=== PATIENT | female | born 1995 | race African-American/Black ===

== ENCOUNTER 2024-04-01 10:23 | Emergency (ER) | payer OTHER, SELFPAY ==
[2024-04-01 10:28] VITALS: BP 117/77; PULSE 82; RESP 18; TEMP 36.9; O2SAT 99; BMI 30.1
[2024-04-01 13:08] VITALS: BP 155/41; PULSE 72; RESP 14; TEMP 36.1; O2SAT 100
[2024-04-01] MEDS: Tetracaine HCl/PF 0.5% Oph Sol 4 ML DROPS 1 DROP EYE-LEFT (14:15)
[2024-04-01] MEDS: Fluorescein Sodium STRIP 1 STRIP EYE-LEFT (14:15)
[2024-04-01 14:44] VITALS: BP 112/59; PULSE 68; RESP 14; TEMP 36.2; O2SAT 100
--- NOTE | 2024-04-01 15:44 | ED_ITS ---
HPI - Eye Problem General Chief complaint: Eye Problems Stated complaint: eye problem Time Seen by Provider: 04/01/24 12:22 History of Present Illness HPI Narrative: Patient complains of a mild foreign body sensation or irritation in the lower left eye for 2 or 3 days, no vision loss no photophobia no discharge from the eye, does not recall anything going into the eye, was not working with metal Related Data Previous Rx's ?Medication ?Instructions ?Recorded carboxymethylcellulose sodium 1 % 1 drp ophthalmic (eye) BID #15 mL 04/01/24 eye drops (Artificial Tears (carboxymethylcellulose)) Allergies Allergy/AdvReac Type Severity Reaction Status Date / Time No Known Allergies Allergy Verified 04/01/24 10:29 [facility] Past Medical History Source: nursing notes reviewed Social History Social History Advance Directives: No Advance Directives Information Provided: Yes Do you have a plan to hurt others: No Plan Physical Exam Vital Signs: Vital Signs: Last Vital Signs Temp 97.1 F 04/01/24 16:05 Pulse 68 04/01/24 16:05 Resp 14 04/01/24 16:05 BP 112/59 L 04/01/24 16:05 Pulse Ox 100 04/01/24 16:05 O2 Del Method Room Air 04/01/24 16:05 BMI result Body Mass Index 30.1 General appearance no distress comfortable appearing The left eye exam there is no discharge pupils equal round reactive to light extraocular motions are intact The lids are flipped back both upper and lower there is no evidence of foreign body The eye was stained with no dye uptake and again no evidence of foreign body Visual acuity was 2020 bilateral Course Course Course Narrative: Eye exam was normal and I did not visualize any foreign body, I did after fluorescein administration irrigate it copiously in case there was any foreign body I did not see and patient did not have a foreign body sensation on discharge and is advised to follow with eye doctor if symptoms persist or return Medications Administered Discontinued Medications Generic Name Dose Route Start Last Admin Trade Name Freq PRN Reason Stop Dose Admin Fluorescein Sodium 1 strip 04/01/24 13:59 04/01/24 14:15 Fluorescein Sodium Strip EYE-LEFT 04/01/24 14:00 1 strip ONCE ONE Administration Tetracaine HCl 1 drop 04/01/24 13:59 04/01/24 14:15 Tetracaine Hcl/Pf 0.5% Oph Antionette 4 Ml Drops EYE-LEFT 10/18/24 14:00 1 drop ONCE ONE Administration Discharge Plan Discharge Clinical Impression: Irritation of left eye Patient Disposition: Home, Self-Care Additional Instructions: The exam did not show any foreign body or scratch and the exam was very normal I irrigated with a lot of water in case there was a small speck I did not see but no sign of any serious problem with the eye If symptoms continue you can try to make an appointment with the eye doctor I gave the number There is a product [id number] called artificial tears which helps to lubricate the eye Return any time any worse condition or concerns Prescriptions: New Artificial Tears (cmc) 1 % drops 1 drp ophthalmic (eye) BID Qty: 15 0RF Referrals: Dani Browne [Physician] - (Left eye foreign body sensation) Interventions: ED Discharge Assessment Last Done: 04/01/24 16:05 Discharge Date/Time: 04/01/24 16:07 Print Language: Rina Bustamante
[2024-04-01 16:05] VITALS: BP 112/59; PULSE 68; RESP 14; TEMP 36.2; O2SAT 100
== END 2024-04-01 16:07 | disposition home or self-care (01) ==
PROVIDERS: Emergency Provider Internal Medicine
DX: H57.8A2 Foreign body sensation, left eye (principal)
CPT/HCPCS: 99283

== ENCOUNTER 2025-03-23 12:09 | Outpatient (REF) | payer OTHER, SELFPAY ==
[2025-03-23 14:06] LABS: Hematocrit 29.7 % (37.0-47.0); Hemoglobin 9.1 g/dl (12.0-16.0); Imm Gran Abs Auto 0.03 X10*3/uL (0.00-0.03); Imm Gran Pct Auto 0.8 % (0.0-0.4); Lymphocytes Absolute Auto 1.4 X10*3/uL (1.2-4.9); Mean Corpuscular HGB Conc 30.6 g/dl (31.0-35.0); Mean Corpuscular Hemoglobin 18.8 pg (27.0-33.0); Mean Corpuscular Volume 61.5 fL (80.0-98.0); NRBC Abs Auto 0.000 X10*3/uL (0.0-0.012); NRBC Pct Auto 0.0 /100WBC (0.0-0.2); Platelet Count 318 X10*3/uL (160-400); Red Blood Count 4.83 X10*6/uL (4.20-5.50); White Blood Count 4.0 X10*3/uL (4.8-10.8)
[2025-03-23 14:08] LABS: MANUAL DIFF FLAG SCAN
[2025-03-23 15:46] LABS: CT PCR Urine NOT DETECTED (Not Detect.); NG PCR Urine NOT DETECTED (Not Detect.)
[2025-03-23 17:13] LABS: Alanine Aminotransferase 23 U/L (0-31); Albumin Level 4.5 g/dL (3.5-5.0); Alkaline Phosphatase 57 U/L (39-117); Anion Gap 10 (12-20); Aspartate Amino Transferase 25 U/L (5-31); Blood Urea Nitrogen 7 mg/dL (9-16); Calcium 9.4 mg/dL (8.4-10.2); Carbon Dioxide 24 mmol/L (22-29); Chloride 109 mmol/L (96-108); Cholesterol 149 mg/dL (<200); Estimated Glomerular Filt Rate > 60; HDL Cholesterol 39 mg/dL (>40); Potassium 4.2 mmol/L (3.3-5.1); Sodium 139 mmol/L (135-145); Total Protein 7.6 g/dL (6.5-8.0); Triglycerides 86 mg/dL (<150)
[2025-03-23 17:30] LABS: Thyroid Stimulating Hormone 0.97 uIU/mL (0.32-4.0)
[2025-03-24 08:49] LABS: HBS Num1 1.60 mIU/mL (0-7.99); HBc Num1 0.15 S/CO (0.00-0.79); HBsAGNum1 0.49 S/CO (0.00-0.99); HIV Num 1 0.11 S/CO (0.00-0.99); Hepatitis B Surface Antigen Negative (Negative); ~HepC Num1 0.13 S/CO (0.00-0.79); ~Hepatitis B Surface Antibody NONREACTIVE (Nonreactive); ~Hepatitis C Antibody Nonreactive (Nonreactive)
== END 2025-03-23 12:10 | disposition home or self-care (01) ==
LOC: HO.HHCL 12:09
PROVIDERS: PCP Nurse Practitioner Family; Visit Provider Nurse Practitioner Family
DX: Z00.00 Encounter for general adult medical examination without abnormal findings (principal); Z11.4 Encounter for screening for human immunodeficiency virus [HIV]; Z13.1 Encounter for screening for diabetes mellitus; Z13.6 Encounter for screening for cardiovascular disorders; Z13.29 Encounter for screening for other suspected endocrine disorder; Z20.2 Contact with and (suspected) exposure to infections with a predominantly sexual mode of transmission
CPT/HCPCS: 80053; 80061; 83036; 84443; 85025; 86704; 86706; 86803; 87340; 87389; 87491; 87591

== ENCOUNTER 2025-04-19 15:48 | Outpatient (REF) | payer OTHER, SELFPAY ==
--- OUTSIDE RECORDS SUMMARY | 2025-04-19 14:30 | XMS_ITS | Encounter Summary ---
Author Organization [employer] Address [address] [place] [address] 7 [place] [address] Care Team Providers Care Integration Aide Name Role Phone Chayo Lance Primary Care Provider [phone] Reason for Referral * Imaging (Routine) - Authorized Specialty Diagnoses / Procedures Referred By Juarez t Referred To Contact Radiology Diagnoses Abnormal uterine bleeding Procedures Us Pelvis complete Chayo Lance, PROJECT ENGINEERING MANAGER [address] [place] [address] Phone: tel: fax: [address] Phone: tel: fax: Referral ID Status Reason Start Date Expiration Date V isits Requested Visits Authorized [id number] Authorized 04/19/2025 04/19/2026 1 1 * Imaging (Routine) - Authorized Specialty Diagnoses / Procedures Referred By Contac t Referred To Contact Radiology Diagnoses Abnormal uterine bleeding Procedures US Pelvis Transvaginal Chayo Lance, PROJECT ENGINEERING MANAGER [address] [place] [address] Phone: tel: fax: [address] Phone: tel: fax: Referral ID Status Reason Start Date Expiration Date V isits Requested Visits Authorized [id number] Authorized 04/19/2025 04/19/2026 1 1 Encounter Details Date Type Department Care Team (Late st Contact Info) Description 04/19/2025 2:30 PM EST Office Visit [facility] [address] [place] [address] Chayo Lance FNP [address] [place], [place] [phone] Microcytic anemia (Primary Dx); Nonintractable episodic headache, unspecified headache type; Abnormal uterine bleeding; Menstrual migraine without status migrainosus, not intractable Social History Tobacco Use Types Packs/Day Years Used Date Smoking Tobacco: Never Passive Smoke Exposure: Never Smokeless Tobacco: Never Alcohol Use Standard Drinks/Week Comments Never 0 (1 standard drink = 0.6 oz pur e alcohol) Depression Answer Date Recorded Patient Health Questionnaire-9 Score 1 03/23/2025 Patient Health Questionnaire-9 Score 1 03/23/2025 Last PHQ-9: Questionnaire Data Not on file 1 Housing Stability Answer Date Recorded What is your housing situation today? I do not have housing (Staying with others, in a hotel, in a skilled nursing, living outside on the street, on a beach, in a car, or in a park 03/23/[address] you li ve. Do you have problems with any of the following? Pests such as bugs, ants, or mice 03/23/2025 Food Insecurity Answer Date Recorded Within the past 12 months, y ou worried that your food would run out before you got money to buy more: Sometimes True 2024 Within the past 12 months,th e food you bought just didn't last and you didn't have enough money to get more: Never True 03/23/2025 Transportation Answer Date Recorded In the past 12 months, has l ack of transportation kept you from medical appts, meetings, work or from getting things needed for daily living? Yes, it has kept me from medical appointments or getting medications.;Yes, it has kept me from non-medical meetings, work, or getting things that I need 03/23/2025 Utilities Answer Date Recorded In the past 12 months, has t he electric, gas, oil or water company threatened to shut off services in your home? No 03/23/2025 Depression Answer Date Recorded Patient Health Questionnaire-2 Score 1 03/23/2025 Internet Access Answer Date Recorded Internet Access Q1 Yes 03/23/2025 Internet Access Q2 Not on file 03/23/2025 Comments Unknown Sex and Gender Information Value Date Recorded Sex Assigned at Female 01/10/2025 2:08 PM EDT Legal Sex Female 1:41 PM EDT Gender Identity Female 01/10/2025 2:08 PM EDT Sexual Orientation Straight 01/17/2025 12 :15 PM EDT documented as of this encounter Last Filed Vital Signs Vital Sign Reading Time Taken Comments Blood Pressure 110/58 04/19/2025 2:24 PM EST Pulse 70 04/19/2025 2:24 PM EST Temperature 36.9 C (98.4 F) 04/19/2025 2:24 PM EST Respiratory Rate 20 04/19/2025 2:24 PM EST Oxygen Saturation - - Inhaled Oxygen Concentration - - Weight 89.4 kg (197 lb 3.2 oz) 04/19/2025 2:24 P M EST Height 169.5 cm (5' 6.75 ) 04/19/2025 2:24 PM ES T Body Mass Index 31.12 04/19/2025 2:24 PM EST documented in this encounter Progress Notes * YVETTE Rivera - 04/19/2025 2:30 PM EST Subjective Doris Garzon is a 29 y.o. female who presents to the office for follow up visit - chronic conditions. Interim history: Nonintractable episodic headache- Headache may be associated with anemia. Migrainous features described. Advised to keep a headache diary. Patient did not come in with diary. 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 Ferrous sulfate (Fe Tabs) 325 (65 Fe) MG EC tablet prescribed. Currently taking iron tablets for low hemoglobin as prescribed Current concern Abnormal Menstrual Bleeding - Reports of having two menstrual periods in March 2025 (first around March 22, 2025, lasting 3 days; second on April 12, 2025) - History of experiencing two or three periods per month - Menstrual cycles described as normal (30 days) when feeling well, - Denies heavy bleeding; describes flow as normal during episodes of increased frequency Current Medications[1] Problem List[2] Review of Systems Constitutional: Negative for chills, fatigue and fever. HENT: Negative for sore throat. Respiratory: Negative for cough, chest tightness and wheezing. Cardiovascular: Negative for chest pain and palpitations. Gastrointestinal: Negative for constipation, nausea and vomiting. Neurological: Negative for headaches. Objective Visit Vitals BP 110/58 (BP Location: Left arm, Patient Position: Sitting, BP Cuff Size: Adult) Pulse 70 Temp 98.4 ??F (36.9 ??C) (Oral) Resp 20 Ht 5' 6.75 (1.695 m) Wt 197 lb 3.2 oz (89.4 kg) LMP 03/27/2025 (Exact Date) BMI 31.12 kg/m?? Smoking Status Never BSA 2.05 m?? Physical Exam Vitals reviewed. Constitutional: Appearance: Normal appearance. HENT: Head: Atraumatic. Cardiovascular: Rate and Rhythm: Normal rate and regular rhythm. Pulses: Normal pulses. Heart sounds: Normal heart sounds. No murmur heard. Pulmonary: Effort: Pulmonary effort is normal. Breath sounds: Normal breath sounds. No wheezing. Neurological: Mental Status: She is alert and oriented to person, place, and time. Psychiatric: Mood and Affect: Mood normal. Behavior: Behavior normal. Assessment/Plan Problem List Items Addressed This Visit Nonintractable episodic headache Menstrual migraine without status migrainosus - Headaches consistent with migraine, with identifiable triggers including menstruation, strong odors, inadequate sleep, and insufficient food intake. Migraines may be hormonally influenced. - Maintain headache diary to identify triggers. Initiate naproxen at onset of menstruation (morningand night), with Tylenol in the afternoon, and continue through menstrual period to prevent headaches. Use Tylenol alone if effective, and switch to naproxen if pain intensifies. Take medication at earliest sign of headache. Avoid triggers when possible. Follow-up in 3 months with headache diary. Relevant Medications naproxen (Naprosyn) 500 MG tablet acetaminophen (Tylenol Extra Strength) 500 MG tablet Microcytic anemia - Primary - Microcytic anemia present, likely contributing to symptoms. Ongoing need to monitor response to iron supplementation. - Continue iron tablet therapy. Ordered blood test to assess efficacy of iron supplementation and to confirm absence of folic acid deficiency. Refilled iron tablet prescription. Follow-up in 3 monthsto reassess anemia and symptoms. Other Relevant Orders CBC auto differential Relevant Medications ferrous sulfate (Fe Tabs) 325 (65 Fe) MG EC tablet Abnormal uterine bleeding - Abnormal uterine bleeding with increased frequency of menses, possibly related to hormonal factors or uterine structural abnormalities. MacuCLEARplanfreshbag contraceptive device in place, expiring July 2025. - Ordered pelvic ultrasound (transabdominal and transvaginal) to evaluate etiology of abnormal bleeding. Will proceed with testing if insurance approves. Monitor bleeding pattern and reassess at follow-up. Discussed contraceptive management and timing of device replacement Other Relevant Orders US Pelvis Transvaginal Us Pelvis complete This note was drafted using Ambient (AI) technology. The patient/patient's guardian has been informed and has consented to the use of this technology: Yes [1] Current Outpatient Medications Medication Sig Dispense Refill acetaminophen (Tylenol Extra Strength) 500 MG tablet Take 2 tablets every 6-8 hrs for headache as needed 30 tablet 0 benzoyl peroxide (PanOxyl Foaming Wash) 10 % external wash Apply small amount to wash face twice daily. Pat dry and apply non fragrance oil free moisturizer 142 g 0 clindamycin (Cleocin T) 1 % lotion Apply topically 2 times daily. 60 mL 5 ferrous sulfate (Fe Tabs) 325 (65 Fe) MG EC tablet Take 1 tablet (325 mg) by mouth with breakfast for 90 doses. Do not crush, chew, or split. 90 tablet 0 naproxen (Naprosyn) 500 MG tablet Take 2 times daily with food as needed for headache / pain 30 tablet 0 No current facility-administered medications for this visit. [2] Patient Active Problem List Diagnosis Nonintractable episodic headache Microcytic anemia Obesity (BMI 30-39.9) [facility] Food insecurity Sheltered homelessness Transportation insecurity documented in this encounter Plan of Treatment Scheduled Orders Name Type Priority Associated Diagnoses Orde r Schedule US Pelvis Transvaginal Imaging Routine Abnormal uterine bleeding Expected: 04/19/2025, Expires: 04/19/2026 Us Pelvis complete Imaging Routine Abnormal uterine bleeding Expected: 04/19/2025, Expires: 04/19/2026 documented as of this encounter Procedures Procedure Name Priority Date/Time Associated Diagnosis Comments CBC WITH AUTO DIFFERENTIAL Routine 04/19/2025 3:53 PM EST Microcytic anemia documented in this encounter Results * (ABNORMAL) CBC auto differential (04/19/2025 3:53 PM EST) White Blood Count 4.8 4.8 - 10.8 X10*3/uL [facility] Red Blood Count 4.58 4.20 - 5.50 X10*6/uL [facility] Hemoglobin 8.4(L) 12.0 - 16.0 g/dl [facility] Hematocrit 27.7(L) 37.0 - 47.0 % [facility] Mean Corpuscular Volume 60.5(L) 80.0 - 98.0 fL [facility] Mean Corpuscular Hemoglobin 18.3(L) 27.0 - 33.0 pg [facility] Mean Corpuscular HGB Conc 30.3(L) 31.0 - 35.0 g/dl [facility] Red Cell Distribution Width 22.2(H) 11.0 - 16.0 % [facility] Platelet Count 306 160 - 400 X10*3/uL [facility] Neutrophils Percent Auto 48.4 45 - 73 % [facility] Imm Gran Pct Auto 0.2 0.0 - 0.4 % [facility] Lymphocytes Percent Auto 37.7 20 - 40 % [facility] Monocytes Percent Auto 10.0 2 - 11 % [facility] Eosinophils Percent Auto 3.3 0 - 4 % [facility] Basophils Percent Auto 0.4 0 - 2 % [facility] NRBC Pct Auto 0.0 0.0 - 0.2 /100WBC [facility] Neutrophils Absolute Auto 2.3 2.0 - 8.3 x10*3/uL [facility] Imm Gran Abs Auto 0.01 0.00 - 0.03 X10*3/uL [facility] Lymphocytes Absolute Auto 1.8 1.2 - 4.9 X10*3/uL [facility] Monocytes Absolute Auto 0.5 0.1 - 1.2 X10*3/uL [facility] Eosinophils Absolute Auto 0.2 0.0 - 0.4 X10*3/uL [facility] Basophils Absolute Auto 0.0 0.0 - 0.2 X10*3/uL [facility] NRBC Abs Auto 0.000 0.0 - 0.012 X10*3/uL [facility] Blood Venous blood specimen / Unknown 04/19/2025 3:53 PM EST 04/19/2025 5:12 PM EST Chayo [facility]RA[facility] BLOOD ORDERABLES Edited Re sult - Final [facility] [address] [place] [phone] documented in this encounter Visit Diagnoses Diagnosis Microcytic anemia- Primary Unspecified iron deficiency anemia Nonintractable episodic headache, unspecified headache type Abnormal uterine bleeding Unspecified disorder of menstruation and other abnormal bleeding from female genital tract Menstrual migraine without status migrainosus, not intractable documented in this encounter Additional Health Concerns Assessment Noted Time PHQ-9 Depression Total Score: 1 03/23/20 25 11:31 AM EDT documented as of this encounter Care Teams Integration Aide Relationship Specialty Start Date End Date Chayo Lance FNP [address] [place] [address] PCP - General Family Medicine 03/23/25 documented as of this encounter
[2025-04-19 17:20] LABS: Imm Gran Abs Auto 0.01 X10*3/uL (0.00-0.03); Imm Gran Pct Auto 0.2 % (0.0-0.4); MANUAL DIFF FLAG SCAN; NRBC Abs Auto 0.000 X10*3/uL (0.0-0.012); NRBC Pct Auto 0.0 /100WBC (0.0-0.2); SCAN SMEAR FLAG 1
[2025-04-19 17:22] LABS: Hematocrit 27.7 % (37.0-47.0); Hemoglobin 8.4 g/dl (12.0-16.0); Lymphocytes Absolute Auto 1.8 X10*3/uL (1.2-4.9); Mean Corpuscular HGB Conc 30.3 g/dl (31.0-35.0); Mean Corpuscular Hemoglobin 18.3 pg (27.0-33.0); Platelet Count 306 X10*3/uL (160-400); Red Blood Count 4.58 X10*6/uL (4.20-5.50); White Blood Count 4.8 X10*3/uL (4.8-10.8)
[2025-04-19 17:46] LABS: Mean Corpuscular Volume 60.5 fL (80.0-98.0)
[2025-04-19 17:47] LABS: PLT ABN DIST 1
[2025-04-19 17:49] LABS: Ferritin 6 ng/mL (10-122)
[2025-04-19 18:05] LABS: Folate 10.3 ng/mL (> or = 4.0); Vitamin B12 388 pg/mL (200-900)
--- OUTSIDE RECORDS SUMMARY | 2025-04-19 18:35 | XMS_ITS | Encounter Summary ---
Author Organization [employer] Address [address] [facility] 7 [place] [address] Care Team Providers Care Partner Integration Planner Name Role Phone Chayo Lance Primary Care Provider Reason for Visit * Reason Onset Date Comments Letter for School/Work 04/19/2025 Encounter Details Date Type Department Care Team ([facility] st Contact Info) Description 04/19/2025 Telephone [facility] [address] [place] [address] Chayo Lance FNP [address] [place] [address] Letter for School/Work Social History Tobacco Use Types Packs/Day Years [...] with others, in a hotel, in a snf, living outside on the street, on a [...] got money to buy more: Sometimes True 10/09/ 2025 Within the past 12 months,th e food [...] PM EDT documented as of this encounter Plan of Treatment Not on file documented as of this encounter Visit Diagnoses Not on filedocumented in this encounter Additional Health Concerns Assessment Noted Time PHQ-9 Depression Total Score: 1 03/23/20 25 11:31 AM EDT documented as of this encounter Care Teams Partner Integration Planner Relationship Specialty Start Date End Date Chayo Lance FNP [address] [place] [id number] PCP - General Family Medicine 03/23/25 documented as of this encounter
--- OUTSIDE RECORDS SUMMARY | 2025-04-19 18:35 | XMS_ITS | Encounter Summary ---
Author Organization [employer] Address [address] [place] [address] Care Team Providers Care Industrial Psychology Teacher Name Role Phone Chayo Lance BLOCK BOLTER MULE OPERATOR Primary Care Provider [phone] Encounter Details Date Type Department Care Team (Latest Contact Info) Description 04/19/2025 Travel Social History Tobacco Use Types Packs/Day Years [...] with others, in a hotel, in a fpc, living outside on the street, on a [...] documented as of this encounter Care Teams Industrial Psychology Teacher Relationship Specialty Start Date End Date Chayo Lance FNP [address] [place] [id number] PCP - General Family Medicine 03/23/25 documented as of this encounter
--- OUTSIDE RECORDS SUMMARY | 2025-04-19 18:35 | XMS_ITS | Encounter Summary ---
Author Organization [employer] Address [address] [place] [address] Care Team Providers Care Vegetable Handler Name Role Phone Chayo Lance BUSINESS SERVICES CLERK Primary Care Provider [phone] Encounter Details Date Type Department Care Team ([facility] st Contact Info) Description 04/19/[address] [facility] [address] [place] [address] Chayo Lance FNP [address] [place] [address] Social History Tobacco Use Types Packs/Day Years [...] with others, in a hotel, in a [facility], living outside on the street, on a [...] documented as of this encounter Care Teams Vegetable Handler Relationship Specialty Start Date End Date Chayo Lance FNP [address] [place] [id number] PCP - General Family Medicine 03/23/25 documented as of this encounter
--- OUTSIDE RECORDS SUMMARY | 2025-04-19 18:35 | XMS_ITS | Encounter Summary ---
Author Organization [employer] Address [address] [place] [address] Care Team Providers Care Garage Door Installer Name Role Phone Chayo Lance CHILDHOOD DEVELOPMENT TEACHER Primary Care Provider [phone] Reason for Visit * Reason Onset Date Comments chart prep 04/18/2025 Encounter Details Date Type Department Care Team (Late st Contact Info) Description 04/18/2025 Telephone [facility] [address] [place], [place] [phone] Raymond Mahmood MA chart prep Social History Tobacco Use Types Packs/Day Years [...] with others, in a hotel, in a [place] [facility], living outside on the street, on a [...] PM EDT documented as of this encounter Miscellaneous Notes * Telephone Encounter - Raymond Mahmood MA - 04/18/2025 7:10 PM EST Chart Prep Labs: not done Images: not done Referrals: breast surgery-Referral cancelled due to patient having Health Safety [employer] [facility] I'm unable to proceed with referral and it's on hold until help desk manager or patient can change insurance. Message sent to referring provider. Vaccines due: Covid, Hep B, and HPV Screenings: pap smear Overdue care gaps: Not applicable documented in this encounter Plan of Treatment Not on file documented as of this encounter Visit Diagnoses Not on filedocumented in this encounter Additional Health Concerns Assessment Noted Time PHQ-9 Depression Total Score: 1 03/23/20 25 11:31 AM EDT documented as of this encounter Care Teams Garage Door Installer Relationship Specialty Start Date End Date Chayo Lance FNP [address] [place] [id number] PCP - General Family Medicine 03/23/25 documented as of this encounter
--- OUTSIDE RECORDS SUMMARY | 2025-04-19 18:35 | XMS_ITS | Clinical Summary ---
Author Organization [employer] Address [address] [facility] [address] [place] [address] Care Team Providers Care Chief Environmental Commitment Officer Name Role Phone Chayo Lance SCHEDULER Primary Care Provider [phone] Allergies No known active allergies Medications clindamycin (Cleocin T) 1 % lotionIndicati ons:Acne comedone Apply topically 2 times daily. 60 mL 5 03/23/20 25 026 Active benzoyl peroxide (PanOxyl Foaming Wash) 10 % external washIndication s:Acne comedone Apply small amount to wash face twice daily. Pat dry and apply non fragrance oil free moisturizer 142 g 03/26/20 25 Active naproxen (Naprosyn) 500 MG tabletIndicati ons:Nonintract able episodic headache, unspecified headache type Take 2 times daily with food as needed for headache / pain 30 tablet 04/19/20 25 Active acetaminophen (Tylenol Extra Strength) 500 MG tablet Take 2 tablets every 6-8 hrs for headache as needed 30 tablet 04/19/20 25 Active ferrous sulfate (Fe Tabs) 325 (65 Fe) MG EC tabletIndicati ons:Microcytic anemia Take 1 tablet (325 mg) by mouth with breakfast for 90 doses. Do not crush, chew, or split. 90 tablet 04/19/20 25 026 Active naproxen (Naprosyn) 500 MG tabletIndicati ons:Nonintract able episodic headache, unspecified headache type Take 2 times daily with food as needed for headache / pain 30 tablet 03/23/20 25 025 Discontinued(R eorder (will not trigger notification to Pharmacy)) ferrous sulfate (Fe Tabs) 325 (65 Fe) MG EC tabletIndicati ons:Microcytic anemia Take 1 tablet (325 mg) by mouth with breakfast for 90 doses. Do not crush, chew, or split. 90 tablet 03/25/20 025 Discontinued(R eorder (will not trigger notification to Pharmacy)) Active Problems Problem Noted Date Diagnosed Date Menstrual migraine without s tatus migrainosus, not intractable 04/19/2025 Nonintractable episodic headache 03/26/2025 Microcytic anemia 03/26/2025 Obesity (BMI 30-39.9) 03/26/2025 Acrochordon 03/26/2025 Food insecurity 03/26/2025 Sheltered homelessness 03/26/2025 Transportation insecurity 03/26/2025 Encounters Date Type Department Care Team Description 04/19/2025 2:30 PM EST Office Visit [address] [phone] Chayo Lance FNP Microcytic anemia (Primary Dx); Nonintractable episodic headache, unspecified headache type; Abnormal uterine bleeding; Menstrual migraine without status migrainosus, not intractable 04/19/[address] [address] Chayo Lance FNP Letter for School/Work 04/19/[address] [address] Chayo Lance FNP 04/19/2025 Travel 04/18/2025 Telephone [facility] [address] [place] [phone] Raymond Mahmood MA chart prep 03/27/2025 Patient Outreach [address] [address] Chayo Lance FNP Care Coordination ([facility] outreach for [facility] housing search-referral completed ) 03/27/[address] [phone] Chayo Lance FNP Results; Lab Orders 03/23/2025 9:30 AM EDT Office Visit [address] [address] Chayo Lance FNP Well adult exam (Primary Dx); Exercise counseling; Encounter for immunization; Microcytic anemia; Obesity (BMI 30-39.9); Dietary counseling; Nonintractable episodic headache, unspecified headache type; Acne comedone; Acrochordon; Sheltered homelessness; Food insecurity; Transportation insecurity 03/23/2025 Orders Only [facility] [address] [place] [phone] Chayo Lance FNP 03/23/[address] [address] Chayo Lance FNP 03/23/2025 Travel 03/16/2025 Patient Outreach [facility] [address] [place] [address] Chayo Lance FNP Pre-visit Planning ([facility] unable to reach [facility] ) 02/24/[address] [address] Demar Ramirez MD New Patient appt. 02/24/[address] [phone] Demar Ramirez MD 01/17/2025 1:20 PM EDT Office Visit [facility] [address] [place] [phone] Mayi Villa MD Breast pain, left (Primary Dx); Nipple anomaly; Sore throat 01/17/2025 Telephone [facility] [address] [place] [phone] Mayi Villa MD 01/17/2025 Travel from Last 3 Months Immunizations Immunization Administration Dates Next Due Influenza, seasonal, injectable, preservative fr ee 03/23/2025 Tdap 03/23/2025 Family History Medical History Relation Name Comments Hypertension Father Hypertension Mother Blindness Paternal Grandmother Hypertension Sister Relation Name Status Comments Father Mother Paternal Grandmother Sister Social History Tobacco Use Types Packs/Day Years Used Date Smoking Tobacco: Never Passive Smoke Exposure: Never Smokeless Tobacco: Never Tobacco Cessation:Counseling Given: Not Answered Alcohol Use Standard Drinks/Week Comments Never 0 [...] with others, in a hotel, in a intermediate, living outside on the street, on a [...] Q2 Not on file 03/23/2025 Comments Unknown Intention Date Recorded No desire to become (finding) 1 Sex and Gender Information Value Date Recorded Sex Assigned at Female 01/10/2025 2:08 PM EDT Legal Sex Female 1:41 PM EDT Gender Identity Female 01/10/2025 2:08 PM EDT Sexual Orientation Straight 01/17/2025 12 :15 PM EDT Last Filed Vital Signs Vital Sign Reading Time Taken Comments Blood Pressure 110/58 04/19/2025 2:24 PM EST Pulse 70 04/19/2025 2:24 PM EST Temperature 36.9 C (98.4 F) 04/19/2025 2:24 PM EST Respiratory Rate 20 04/19/2025 2:24 PM EST Oxygen Saturation 99% 03/23/2025 9:48 AM EDT Inhaled Oxygen Concentration - - Weight 89.4 kg (197 lb 3.2 oz) 04/19/2025 2:24 P M EST Height 169.5 cm (5' 6.75 ) 04/19/2025 2:24 PM ES T Body Mass Index 31.12 04/19/2025 2:24 PM EST Plan of Treatment Health Maintenance Due Date Last Done Comments HPV Vaccines (1 - 3-dose series) 2008 Hepatitis B Vaccines (1 of 3 - 19+ 3-dose series) 2012 Pap Smear 2014 Cervical Cancer Screening 2023 HPV/Cotest 2023 COVID-19 Vaccine ( - 2023-2 5 season) 2025 Alcohol/Substance Use Screening 03/23/2026 03/23/2025 Depression Screening 03/23/2026 03/23/2025, 03/23/2025 Diabetes: Hemoglobin A1C 03/23/2026 03/23/2025 Disability Screening 03/23/2026 03/23/2025 SDOH Screening 03/23/2026 03/23/2025 Tobacco Screening 03/23/2026 03/23/2025 Family Planning (PISQ) 03/26/2026 03/26/2025 Lipid Panel 03/23/2030 03/23/2025 DTaP/Tdap/Td Vaccines (2 - T d or Tdap) 03/23/2035 03/23/2025 Zoster Vaccines (1 of 2) 2043 RSV Patients and Patients Aged 60 years or older (1 - 1-dose 75+ series) 2068 HIV Screening Completed 03/23/2025 Hepatitis C Screening Completed 03/23/2025 Influenza Vaccine Completed 03/23/2025 HIB Vaccines Aged Out No longer eligi ble based on patient's age to complete this topic Hepatitis A Vaccines Aged Out No long er eligible based on patient's age to complete this topic IPV Vaccines Aged Out No longer eligi ble based on patient's age to complete this topic Meningococcal B Vaccine Aged Out No l onger eligible based on patient's age to complete this topic Meningococcal Vaccine Aged Out No ren marisela eligible based on patient's age to complete this topic Pneumococcal Vaccine: Pediatrics (0 to 5 Years) and At-Risk Patients (6 to 49) Years Aged Out No longer eligible b ased on patient's age to complete this topic RSV under 20 months Aged Out No longe r eligible based on patient's age to complete this topic Rotavirus Vaccines Aged Out No longer eligible based on patient's age to complete this topic Procedures Procedure Name Priority Date/Time Associated Diagnosis Comments SLIDE REVIEW Routine 04/19/2025 3:53 PM EST CBC WITH AUTO DIFFERENTIAL Routine 04/19/2025 3:53 PM EST Microcytic anemia VITAMIN B12/FOLATE, SERUM PANEL Routine 04/19/2025 3:53 PM EST Microcytic anemia FERRITIN Routine 04/19/2025 3:53 PM EST Microcytic anemia SLIDE REVIEW Routine 03/23/2025 12:16 PM EDT HEMOGLOBIN A1C Routine 03/23/2025 12:16 PM EDT Well adult exam LIPID PANEL, STANDARD Routine 03/23/2025 12:16 PM EDT Well adult exam HIV 1/2 ANTIGEN/ANTIBODY, FOURTH GENERATION W/RFL Routine 03/23/2025 12:16 PM EDT Well adult exam CBC WITH AUTO DIFFERENTIAL Routine 03/23/2025 12:16 PM EDT Well adult exam HEPATITIS C AB W/REFL TO HCV RNA, QN, PCR Routine 03/23/2025 12:16 PM EDT Well adult exam HEPATITIS B SURFACE ANTIGEN, EIA Routine 03/23/2025 12:16 PM EDT Well adult exam HEPATITIS B SURFACE ANTIBODY, QUALITATIVE Routine 03/23/2025 12:16 PM EDT Well adult exam TSH Routine 03/23/2025 12:16 PM EDT Well adult exam HEPATITIS B CORE AB TOTAL Routine 03/23/2025 12:16 PM EDT Well adult exam COMPREHENSIVE METABOLIC PANEL Routine 03/23/2025 12:16 PM EDT Well adult exam CHLAMYDIA/TRICHOMONAS/ NEISSERIA GONORRHOEAE, PCR, URINE Routine 03/23/2025 12:00 AM EDT Well adult exam POCT RAPID STREP A Routine 01/17/2025 1: 39 PM EDT Sore throat from Last 3 Months Results * Slide Review (04/19/2025 3:53 PM EST) Only the most recent of2 resultswithin the time period is included. Slide Review VERIFIED [facility] 04/19/2025 3:53 PM EST 04/19/2025 5:12 PM EST us Chayo Mykekristine SCHEDULER LAB BLOOD ORDERABLES Final Res ult [facility] [address] [place] [address] [phone] * Vitamin B12/Folate, Serum Panel (04/19/2025 3:53 PM EST) Vitamin B12 388 200 - 900 pg/mL [facility] Comment:NORMAL 200-900 PG/ML INDETERMINATE 160-199 PG/ML DEFICIENT < 160 PG/ML Folate 10.3 > or = 4.0 ng/mL [facility] Comment:Reference Values:> o r = 4.0 ng/mL< 4.0 ng/mL suggests folate deficiency Methotrexate, aminopterin and folinic acid(leucovorin) are chemotherapeutic agents whose molecularstructures are similar to folate; therefore, the Architectfolate assay cannot be used for patients using these drugs. Blood Venous blood specimen / Unknown 04/19/2025 3:53 PM EST 04/19/2025 5:12 PM EST us Chayo Lance SCHEDULER LAB BLOOD ORDERABLES Final Res ult [facility] [address] [place] [phone] * (ABNORMAL) CBC auto differential (04/19/2025 3:53 PM EST) Only the most recent of2 resultswithin the time period is included. White Blood Count 4.8 4.8 - 10.8 X10*3/uL [facility] Red Blood Count 4.58 4.20 - 5.50 X10*6/uL [facility] Hemoglobin 8.4(L) 12.0 - 16.0 g/dl [facility] Hematocrit 27.7(L) 37.0 - 47.0 % [facility] Mean Corpuscular Volume 60.5(L) 80.0 - 98.0 fL [facility] Mean Corpuscular Hemoglobin 18.3(L) 27.0 - 33.0 pg [facility] Mean Corpuscular HGB Conc 30.3(L) 31.0 - 35.0 g/dl [facility] Red Cell Distribution Width 22.2(H) 11.0 - 16.0 % [facility] Platelet Count 306 160 - 400 X10*3/uL [facility] Neutrophils Percent Auto 48.4 45 - 73 % [facility] Imm Gran Pct Auto 0.2 0.0 - 0.4 % [facility] Lymphocytes Percent Auto 37.7 20 - 40 % [facility] Monocytes Percent Auto 10.0 2 - 11 % [facility] Eosinophils Percent Auto 3.3 0 - 4 % [facility] Basophils Percent Auto 0.4 0 - 2 % [facility] NRBC Pct Auto 0.0 0.0 - 0.2 /100WBC [facility] Neutrophils Absolute Auto 2.3 2.0 - 8.3 x10*3/uL [facility] Imm Gran Abs Auto 0.01 0.00 - 0.03 X10*3/uL [facility] Lymphocytes Absolute Auto 1.8 1.2 - 4.9 X10*3/uL [facility] Monocytes Absolute Auto 0.5 0.1 - 1.2 X10*3/uL [facility] Eosinophils Absolute Auto 0.2 0.0 - 0.4 X10*3/uL [facility] Basophils Absolute Auto 0.0 0.0 - 0.2 X10*3/uL [facility] NRBC Abs Auto 0.000 0.0 - 0.012 X10*3/uL [facility] Blood Venous blood specimen / Unknown 04/19/2025 3:53 PM EST 04/19/2025 5:12 PM EST [employer] LAB BLOOD ORDERABLES Edited Re sult - Final Performing Organization Address City/[facility]/ZIP Co de Phone Number [facility] [address] [place] [phone] * (ABNORMAL) Ferritin (04/19/2025 3:53 PM EST) Ferritin 6(L) 10 - 122 ng/mL [facility] Blood Venous blood specimen / Unknown 04/19/2025 3:53 PM EST 04/19/2025 5:12 PM EST [employer] LAB BLOOD ORDERABLES Final Res ult Performing Organization Address City/[facility]/ZIP Co de Phone Number [facility] [address] [place] [phone] * Hepatitis C Antibody with Reflex to HCV, RNA, Quantitative, Real-Time PCR (03/23/2025 12:16 PM EDT) Pathologist [facility] Hepatitis C Antibody Nonreactive Nonreactive [facility] Comment:Antibodies to HCV no t detected; does not exclude early acuteHCV infection. Blood Venous blood specimen / Unknown 03/23/2025 12:16 PM EDT 03/23/2025 4:14 PM EDT [facility] BLOOD ORDERABLES Final Res ult Performing Organization Address [facility]/ZIP Co de Phone Number [facility] [address] [place] [phone] * Hepatitis B surface antigen, EIA (03/23/2025 12:16 PM EDT) Pathologist [facility] Hepatitis B Surface Ag Negative Negative [facility] Blood Venous blood specimen / Unknown 03/23/2025 12:16 PM EDT 03/23/2025 4:14 PM EDT [facility] LAB BLOOD ORDERABLES Final Res ult Performing Organization Address [facility] Co de Phone Number [facility] [address] [place] [phone] * Hepatitis B Core Antibody, Total (03/23/2025 12:16 PM EDT) Pathologist [facility] Hepatitis B Core Antibody Nonreactive Nonreactive [facility] Blood Venous blood specimen / Unknown 03/23/2025 12:16 PM EDT 03/23/2025 4:14 PM EDT [facility]o [facility] LAB BLOOD ORDERABLES Final Res ult Performing Organization Address [facility] Co de Phone Number [facility] [address] [place] [phone] * HIV-1/2 Antigen and Antibodies, Fourth Generation, with Reflexes (03/23/2025 12:16 PM EDT) Pathologist [facility] HIV AB/AG Nonreactive Nonreactive [facility] Comment:HIV-1 p24 Ag and/or HIV-1/HIV-2 Ab not detected.A test result that is nonreactive does not exclude thepossibility of exposure to or infection with HIV-1 and/orHIV-2. Nonreactive results in this assay for individualswith prior exposure to HIV-1 and/or HIV-2 may be due toantigen and antibody levels that are below the limit ofdetection of this assay.The Synerscope HIV Ag/Ab Combo assay result andsupplemental assay results should be interpreted inconjunction with the patient's clinical presentation,history and other laboratory results. If the results areinconsistent with clinical evidence, additional testing issuggested to confirm the result. Blood Venous blood specimen / Unknown 03/23/2025 12:16 PM EDT 03/23/2025 4:14 PM EDT [employer] LAB BLOOD ORDERABLES Final Res ult Performing Organization Address City/[facility]/ZIP Co de Phone Number [facility] [address] [place] [phone] * Hepatitis B Surface Antibody, Qualitative (03/23/2025 12:16 PM EDT) [facility] ~Hepatitis B Surface Antibody NONREACTIVE Nonreactive [facility] Comment:Nonreactive: < 8.00 mIU/mL Blood Venous blood specimen / Unknown 03/23/2025 12:16 PM EDT 03/23/2025 4:14 PM EDT [employer] LAB BLOOD ORDERABLES Final Res ult Performing Organization Address [facility]/ZIP Co de Phone Number [facility] [address] [place] [phone] * TSH (03/23/2025 12:16 PM EDT) [facility] Thyroid Stimulating Hormone 0.97 0.32 - 4.0 uIU/mL [facility] Comment:TSH 3rd Generation ( [facility]) Blood Venous blood specimen / Unknown 03/23/2025 12:16 PM EDT 03/23/2025 4:14 PM EDT [facility] LAB BLOOD ORDERABLES Final Res ult Performing Organization Address [facility]/ZIP Co de Phone Number [facility] [address] [place] [phone] * Hemoglobin A1c (03/23/2025 12:16 PM EDT) Hemoglobin A1c 5.7 <6.0 % [facility] Comment:Hemoglobin A1C Refer ence Range Adults: 4.8 - 6.0 % Non diabetic: < 6.0 % Goal: < 7.0 %Additional Action Suggested: > 8.0 %Note: Hemoglobin A1c results are invalid for patients with abnormal amounts of HbF. Blood transfusions may impact the HbA1c concentration in the patient sample. Estimated Average Glucose 117 mg/dL [facility] Comment:eAG = Estimated ave rage glucose which is %A1C expressed asaverage glucose, using the formula of the [id number] Glucose study (ADAG), Diabetes Care, Vol.31,#8,Aug. 2007 Blood Venous blood specimen / Unknown 03/23/2025 12:16 PM EDT 03/23/2025 1:15 PM EDT us [facility] BLO[facility] ORDERABLES Final Res ult Performing Organization Address City/[facility]/ZIP Co de Phone Number [facility] [address] [place] [phone] * (ABNORMAL) Lipid Panel, Standard (03/23/2025 12:16 PM EDT) Triglycerides 86 <150 mg/dL [facility] Comment:Desirable Triglyceri de: less than 150 mg/dLBorderline High Triglyceride 150-199 mg/dLHigh Triglyceride: 200-499 mg/dLVery High Triglyceride: greater than or equal to 5OO mg/dL Cholesterol 149 <200 mg/dL [facility] Comment:Desirable Cholestero l: less than 200 mg/dLBorderline High Cholesterol: 200-239 mg/dLHigh Cholesterol: greater than 239 mg/dL LDL Cholesterol Calculated 93 <100 mg/dL [facility] Comment:Desirable LDL: less than 100 mg/dLNear Optimal/Above Optimal LDL: 110- 129 mg/dLBorderline High LDL: 130-159 mg/dLHigh LDL: 160-189 mg/dLVery High LDL: greater than or equal to 190 mg/dL HDL Cholesterol 39(L) >40 mg/dL [facility] Comment:Desirable HDL: grea ter than 40 mg/dL Note: This HDL assay may give artificially low results in patients with liver disease. Blood Venous blood specimen / Unknown 03/23/2025 12:16 PM EDT 03/23/2025 4:14 PM EDT us Chayo Lance SCHEDULER LAB BLOOD ORDERABLES Final Res ult [facility] [address] [place] [phone] * (ABNORMAL) Comprehensive Metabolic Panel (03/23/2025 12:16 PM EDT) Sodium 139 135 - 145 mmol/L [facility] Potassium 4.2 3.3 - 5.1 mmol/L [facility] Chloride 109(H) 96 - 108 mmol/L [facility] Carbon Dioxide 24 22 - 29 mmol/L [facility] Anion Gap 10(L) 12 - 20 [facility] Urea Nitrogen (BUN) 7(L) 9 - 16 mg/dL [facility] Creatinine, Serum 0.62 0.5 - 1.4 mg/dL [facility] Estimated Glomerular Filt Rate >60 [facility] Comment:Chronic Kidney Disea se: Estimated GFR < 60 mL/min/1.11d5Szidbu Kidney Disease: Estimated GFR < 15 mL/min/1.73m2 Glucose 80 60 - 115 mg/dL [facility] Calcium 9.4 8.4 - 10.2 mg/dL [facility] Bilirubin, Total 0.2 0.0 - 1.0 mg/dL [facility] Aspartate Amino Transferase 25 5 - 31 U/L [facility] Alanine Aminotransferase 23 0 - 31 U/L [facility] Total Protein 7.6 6.5 - 8.0 g/dL [facility] Albumin Level 4.5 3.5 - 5.0 g/dL [facility] Alkaline Phosphatase 57 39 - 117 U/L [facility] Blood Venous blood specimen / Unknown 03/23/2025 12:16 PM EDT 03/23/2025 4:14 PM EDT Chayo Lance SCHEDULER LAB BLOOD ORDERABLES Final Res ult [facility] [address] [place] [phone] * Chlamydia/N. Gonorrhoeae, PCR, Urine (03/23/2025 12:00 AM EDT) CT PCR, Urine NOT DETECTED Not Detect. [facility] Comment:A not detected test result does not exclude the possibilityof infection because test results can be affected byimproper specimen collection, concurrent antibiotic therapy,or the number of organisms in the specimen which may bebelow the sensitivity of the test. As with many diagnostictests, results from the Xpert CT/NG assay should beinterpreted in conjunction with other laboratory andclinical data available to the clinician.The Xpert CT/NG assay should not be used for the evaluationof suspected sexual abuse or for other medico-legalindications. Additional testing is recommended in anycircumstance when false positive or false negative resultscould lead to adverse medical, social or psychologicalconsequences. NG PCR, Urine NOT DETECTED Not Detect. [facility] Comment:A not detected test result does not exclude the possibilityof infection because test results can be affected byimproper specimen collection, concurrent antibiotic therapy,or the number of organisms in the specimen which may bebelow the sensitivity of the test. As with many diagnostictests, results from the Xpert CT/NG assay should beinterpreted in conjunction with other laboratory andclinical data available to the clinician.The Xpert CT/NG assay should not be used for the evaluationof suspected sexual abuse or for other medico-legalindications. Additional testing is recommended in anycircumstance when false positive or false negative resultscould lead to adverse medical, social or psychologicalconsequences. Urine (Urine, Random) 03/23/2025 03/23/2025 Chayo CRAWFORD LAB URINE ORDERABLES Final Res ult [facility] [address] [place] [phone] * POCT rapid strep A manually resulted (01/17/2025 1:39 PM EDT) Rapid Strep A Screen Negative Negative, None Detected Swab 01/17/2025 1:39 PM EDT Mayi Villa MD POINT OF CARE TEST ENTER/E DIT ORDERABLES Final Result from Last 3 Months Insurance HSN FULL Care Teams Chief Environmental Commitment Officer Relationship Specialty Start Date End Date Chayo Lance FNP [address] [place] [phone] PCP - General Family Medicine 03/23/25
== END 2025-04-19 15:49 | disposition home or self-care (01) ==
LOC: HO.HHCL 15:48
PROVIDERS: PCP Nurse Practitioner Family; Visit Provider Nurse Practitioner Family
DX: D50.9 Iron deficiency anemia, unspecified (principal)
CPT/HCPCS: 36415; 82607; 82728; 82746; 85025